=== PATIENT | female | born 1955 | race Caucasian/White ===

== ENCOUNTER → 2016-11-18 | Outpatient (CLI) | payer MEDICARE, OTHER ==
[~2016-11-18] MED LIST: AMBIEN 10MG10 M1 PO; AMLOPIDINE; ATIVAN1 MG PO; BUPROPRION; CYMBALTA; METHYLPHENIDATE; OXYCODONE5 M1 PO; PERIACTIN 4MG TA4 MG PO; PHENERGAN 25 TA25 MG PO; PREMARIN0.625 MG PO; PROTONIX40 MG PO; RISPERDAL0.5 MG PO; STOOL SOFTENER100 MG PO; SYNTHROID PO; TOPAKAX; TYLENOL 500MG500 MG PO; WELLBUTRIN PO
== END ==
LOC: BHSO 09:53
DX: F43.10 Post-traumatic stress disorder, unspecified (principal)

== ENCOUNTER → 2016-12-16 | Outpatient (CLI) | payer MEDICARE, OTHER | LOC: BHSO 10:40 | DX: F43.10 Post-traumatic stress disorder, unspecified (principal) ==

== ENCOUNTER → 2017-01-14 | Outpatient (CLI) | payer MEDICARE, OTHER | LOC: BHSO 10:16 | DX: F43.10 Post-traumatic stress disorder, unspecified (principal) ==

== ENCOUNTER → 2017-02-15 | Outpatient (CLI) | payer MEDICARE, OTHER | LOC: BHSO 13:10 | DX: F43.10 Post-traumatic stress disorder, unspecified (principal) ==

== ENCOUNTER → 2017-06-18 | Outpatient (CLI) | payer MEDICARE, OTHER | LOC: BHSO 14:40 | DX: F43.10 Post-traumatic stress disorder, unspecified (principal) ==

== ENCOUNTER → 2017-09-14 | Outpatient (CLI) | payer MEDICARE, OTHER | LOC: BHSO 10:32 | DX: F43.10 Post-traumatic stress disorder, unspecified (principal) ==

== ENCOUNTER → 2018-02-02 | Outpatient (CLI) | payer MEDICARE, OTHER | LOC: BHSO 13:59 | DX: F43.10 Post-traumatic stress disorder, unspecified (principal) | CPT/HCPCS: G0463 ==

== ENCOUNTER → 2018-08-24 | Outpatient (CLI) | payer MEDICARE, OTHER | LOC: BHSO 10:50 | DX: F43.10 Post-traumatic stress disorder, unspecified (principal) | CPT/HCPCS: G0463 ==

== ENCOUNTER → 2019-04-06 | Outpatient (CLI) | payer MEDICARE, OTHER | LOC: BHSO 15:18 | DX: F43.10 Post-traumatic stress disorder, unspecified (principal) | CPT/HCPCS: G0463 ==

== ENCOUNTER → 2019-08-16 | Outpatient (CLI) | payer MEDICARE, OTHER | LOC: COL.CARD 12:57 | DX: R47.89 Other speech disturbances (principal); R25.1 Tremor, unspecified ==

== ENCOUNTER → 2019-09-13 | Outpatient (CLI) | payer MEDICARE, OTHER | LOC: BHSO 14:40 | DX: F43.10 Post-traumatic stress disorder, unspecified (principal) | CPT/HCPCS: G0463 ==

== ENCOUNTER → 2019-11-08 | Outpatient (CLI) | payer MEDICARE, OTHER | LOC: BHSO 13:36 | DX: F43.10 Post-traumatic stress disorder, unspecified (principal) | CPT/HCPCS: G0463 ==

== ENCOUNTER → 2020-04-02 | Outpatient (CLI) | payer MEDICARE, OTHER | LOC: BHSO 14:43 | DX: F43.10 Post-traumatic stress disorder, unspecified (principal) | CPT/HCPCS: G0463 ==

== ENCOUNTER → 2020-07-02 | Outpatient (CLI) | payer MEDICARE, OTHER | LOC: BHSO 14:51 | DX: F43.10 Post-traumatic stress disorder, unspecified (principal) | CPT/HCPCS: G0463 ==

== ENCOUNTER → 2020-11-21 | Outpatient (CLI) | payer MEDICARE, OTHER | LOC: COL.PUL 12:58 | DX: R06.02 Shortness of breath (principal); F17.210 Nicotine dependence, cigarettes, uncomplicated | CPT/HCPCS: J7674 ==

== ENCOUNTER 2020-12-31 06:05 | Day surgery (SDC) | payer MEDICARE, OTHER ==
[~2020-12-31] VITALS: Ht 162.6 cm; Wt 57.3 kg
[2020-12-31] VITALS (7 sets, daily range): BP systolic 134–164; BP diastolic 68–99; PULSE 68–77; TEMP 97.7–98
[2020-12-31] MEDS ORDERED: COGENTIN 1MG1 MG/TAB PO (06:51)
[2020-12-31] MEDS ORDERED: SYNTHROID0.112 MG/T PO (06:52)
[2020-12-31] MEDS ORDERED: ALDACTONE 25MG25 M1 PO (06:52)
[2020-12-31] MEDS ORDERED: MINIPRESS 1M1 MG/CAP PO (06:53)
[2020-12-31] MEDS ORDERED: DESYREL 100MG100 MG PO (06:53)
[2020-12-31] MEDS ORDERED: SEROQUEL 200MG200 MG PO ×2 (06:55)
[2020-12-31] MEDS ORDERED: REMERON 15M15 MG/TA1 PO (06:56)
[2020-12-31] MEDS ORDERED: ATIVAN 0.50.5 MG/TAB PO (06:56)
[2020-12-31] MEDS ORDERED: ARICEPT10 MG PO (06:57)
[2020-12-31] MEDS ORDERED: BRINTELLIX20 PO (06:57)
[2020-12-31] MEDS ORDERED: ACIPHEX20 MG PO (06:58)
[2020-12-31] MEDS ORDERED: RECLAST5 MG/100 M IV (06:59)
[2020-12-31] MEDS ORDERED: NAMENDA 10MG TA10 MG PO (06:59)
[2020-12-31] MEDS ORDERED: ONE-A-DAY ESSE1 EACH PO (07:00)
[2020-12-31] MEDS ORDERED: MIRALAX PA17 GM/Dose PO (07:00)
[2020-12-31] MEDS ORDERED: SENOKOT8.6 MG PO (07:00)
[2020-12-31] MEDS ORDERED: ASPIRIN 81M81 MG/TA2 PO (07:01)
[2020-12-31] MEDS ORDERED: TYLENOL 8 HR PO (07:02)
--- NOTE | 2020-12-31 10:00 | NUR ---
PT DISCHARGED VIA WHEEL CHAIR TO PRIVATE VEHICLE. PT'S DAUGHTER DRIVING. BLONGINGS AND DISCHARGE PACKET SENT WITH PATIENT.
--- NOTE | 2020-12-31 10:06 | NUR ---
PT RETURNS VIA CART TO [facility] [place] ACCOMPANIED BY JAMES CHANDRA. PT ALERT AND ORIENTED. DRINKING WATER. VITALS WNL. OCCASSIONAL COUGH. DENIES NAUSEA, REPORTS SLIGHT HEADACHE. CALL LIGHT IN REACH, DAUGHTER AT BEDSIDE.
--- NOTE | 2020-12-31 10:09 | NUR ---
PT RESTING IN BED WITH DAUGHTER AT SIDE. SECOND GLASS OF WATER PROVIDED. PT DOES NOT WANT FOOD AT THIS TIME. DENIES NAUSEA. CONTINUES TO REPORT SLIGHT HEADACHE, NORMAL FOR PT. CALL LIGHT IN REACH.
--- NOTE | 2020-12-31 10:12 | NUR ---
PT'S IV D/C'D. DRESSING APPLIED WITH COTTON BALL AND COBAN. PT AMBULATES TO RESTROOM WITH STANDBY ASSIST WITHOUT DIFFICULTY. VOIDS. PT RETURNS TO ROOM, CHANGES TO PERSONAL CLOTHES. VITALS WNL. PT DENIES NAUSEA, DENIES FOOD. REPORTS SLIGHT HEADACHE. DAUGHTER AT BEDSIDE, CALL LIGHT IN REACH.
--- NOTE | 2020-12-31 10:14 | NUR ---
DISCHARGE INSTRUCTIONS REVIEWED WITH PATIENT AND DAUGHTER. PATIENT AND DAUGHTER VERBALIZE UNDERSTANDING AND DENY FURTHER QUESTIONS OR COMPLAINTS.
== END 2020-12-31 10:00 | disposition home or self-care (01) ==
LOC: SDCO 06:05
DX: J40 Bronchitis, not specified as acute or chronic (principal); I10 Essential (primary) hypertension; J44.9 Chronic obstructive pulmonary disease, unspecified; J45.20 Mild intermittent asthma, uncomplicated; D80.1 Nonfamilial hypogammaglobulinemia; R91.1 Solitary pulmonary nodule; K31.84 Gastroparesis; K21.9 Gastro-esophageal reflux disease without esophagitis; Z20.822 Contact with and (suspected) exposure to COVID-19; F17.210 Nicotine dependence, cigarettes, uncomplicated; Z79.899 Other long term (current) drug therapy
CPT/HCPCS: J2704; J7120

== ENCOUNTER → 2021-05-21 | Outpatient (CLI) | payer MEDICARE, OTHER ==
[~2021-05-21] MED LIST changes: +ACIPHEX20 MG PO; +ALDACTONE 25MG25 M1 PO; +ARICEPT10 MG PO; +ASPIRIN 81M81 MG/TA2 PO; +ATIVAN 0.50.5 MG/TAB PO; +BRINTELLIX20 PO; +COGENTIN 1MG1 MG/TAB PO; +DESYREL 100MG100 MG PO; +MINIPRESS 1M1 MG/CAP PO; +MIRALAX PA17 GM/Dose PO; +NAMENDA 10MG TA10 MG PO; +ONE-A-DAY ESSE1 EACH PO; +RECLAST5 MG/100 M IV; +REMERON 15M15 MG/TA1 PO; +SENOKOT8.6 MG PO; +SEROQUEL 200MG200 MG PO; +SYNTHROID0.112 MG/T PO; +TYLENOL 8 HR PO
== END ==
LOC: COL.RAD 13:30
DX: R90.82 White matter disease, unspecified (principal); H53.9 Unspecified visual disturbance